=== PATIENT | female | born 1940 | race Caucasian/White ===

== ENCOUNTER 2017-04-16 21:48 | Observation (INO) | payer OTHER ==
[~2017-04-16] VITALS: Ht 165.1 cm; Wt 61.9 kg
[~2017-04-16 21:48] MED LIST: AMITRIPTYLINE H25 MG PO; ASPIRIN EC325 MG PO; ELAVIL25 MG PO; GABAPENTIN600 MG PO; LEVOTHYROXINE50 MCG PO; LEVSIN0.125 MG PO; LO-DOSE ASPIRIN81 M1 PO; MIRALAX17 GM PO; MYRBETRIQ25 MG PO; OMEPRAZOLE20 MG PO; PRILOSEC20 MG PO; TYLENOL EXTRA500 MG PO; VITAMIN D400 UNI4 PO; WELCHOL625 MG PO
[2017-04-16 22:28] LABS: HEMATOCRIT 40.7 % (36.0-46.0); MCH 28.5 PG (29.0-34.0); MCHC 33.2 G/DL (30.0-36.0); MEAN PLAT.VOLUME 8.5 uM^3 (9.5-12.4); PLATELET COUNT 429 K/uL (156-360); RBC DIS.WIDTH-CV 13.7 % (11.8-14.6); RBC DIS.WIDTH-SD 42.9 % (39-53); RED BLOOD COUNT 4.73 M/uL (3.80-5.20); WHITE BLOOD COUNT 8.3 K/uL (4.1-10.2)
[2017-04-16 22:43] LABS: CHLORIDE 96 mEq/L (99-109); POTASSIUM 4.5 mEq/L (3.7-5.4); SODIUM 133 mEq/L (136-147)
[2017-04-16 22:47] LABS: ANION GAP 10 MEQ/L (2-14)
[2017-04-16 22:49] LABS: GFR ESTIMATE (CALCULATED) > 59 mL/min/
[2017-04-16 22:50] LABS: UREA NITROGEN (BUN) 15 mg/dL (9-23)
[2017-04-16 23:25] LABS: GLUCOSE 87 mg/dL (70-99)
[2017-04-16 23:42] LABS: INTER. NORMALIZED RATIO 2.5; PROTHROMBIN TIME 28.9 SEC (10.2-12.9)
[2017-04-16 23:44] LABS: PTT 47.3 SEC (25-37)
[2017-04-17 02:06] LABS: TROP-I INTERPRETATION NEGATIVE; TROPONIN-I 0.02 ng/mL (0.0-0.30)
[2017-04-17] MEDS ORDERED: VITAMIN D-3 401 EACH PO (03:07)
[2017-04-17] MEDS ORDERED: MYRBETRIQ50 MG PO (03:08)
[2017-04-17] MEDS ORDERED: LYRICA50 MG PO (03:08)
[2017-04-17] MEDS ORDERED: ATORVASTATIN CA10 MG PO (03:09)
[2017-04-17] MEDS ORDERED: COUMADIN2 MG PO (03:09)
[2017-04-17 04:39] VITALS: BP 147/81
[2017-04-17 05:31] LABS: MCH 29.3 PG (29.0-34.0); MCHC 34.1 G/DL (30.0-36.0); MEAN PLAT.VOLUME 8.9 uM^3 (9.5-12.4); PLATELET COUNT 414 K/uL (156-360); RBC DIS.WIDTH-CV 13.8 % (11.8-14.6); RBC DIS.WIDTH-SD 43.5 % (39-53); WHITE BLOOD COUNT 7.7 K/uL (4.1-10.2)
[2017-04-17 05:36] LABS: TROP-I INTERPRETATION NEGATIVE; TROPONIN-I < 0.01 ng/mL (0.0-0.30)
[2017-04-17 06:14] LABS: ANION GAP 9 MEQ/L (2-14); CHLORIDE 98 MEQ/L (99-109); GFR ESTIMATE (CALCULATED) > 59 mL/min/; GLUCOSE 84 mg/dL (70-99); POTASSIUM 3.7 MEQ/L (3.7-5.4); SAMPLE HEMOLYSIS CHECK 0; SAMPLE ICTERIC CHECK 0; SAMPLE LIPEMIA CHECK 0; SODIUM 135 MEQ/L (136-147); UREA NITROGEN (BUN) 11 mg/dL (9-23)
[2017-04-17 06:28] VITALS: BP 174/81
[2017-04-17 07:00] VITALS: BP 178/85
[2017-04-17] MEDS ORDERED: NITROSTAT0.4 MG SL (09:59)
[2017-04-17] MEDS ORDERED: ASPIRIN325 MG PO (10:27)
[2017-04-17] MEDS ORDERED: VITAMIN B-650 M1 PO (10:27)
[2017-04-17] MEDS ORDERED: MAG-OXIDE400 MG PO (10:28)
[2017-04-17] MEDS ORDERED: VITAMIN B12 100MCG PO (10:28)
[2017-04-17 10:34] LABS: TROP-I INTERPRETATION NEGATIVE; TROPONIN-I < 0.01 ng/mL (0.0-0.30)
[2017-04-17 11:49] VITALS: BP 156/76
[2017-04-17] MEDS ORDERED: VALSARTAN160 MG PO (12:40)
[2017-04-17 14:20] VITALS: BP 141/67
== END 2017-04-17 14:38 | disposition home or self-care (01) ==
LOC: EME 21:48 → EDOF 04-17 02:28 → 5WEST 04-17 03:37
PROVIDERS: Emergency Medicine; Nurse Practitioner Adult Health
DX: R07.9 Chest pain, unspecified (principal); I10 Essential (primary) hypertension; R06.02 Shortness of breath; E78.5 Hyperlipidemia, unspecified; G43.909 Migraine, unspecified, not intractable, without status migrainosus; I25.2 Old myocardial infarction; K21.9 Gastro-esophageal reflux disease without esophagitis; Z86.73 Personal history of transient ischemic attack (TIA), and cerebral infarction without residual deficits; Z79.82 Long term (current) use of aspirin; Z79.01 Long term (current) use of anticoagulants; Z87.891 Personal history of nicotine dependence; I25.10 Atherosclerotic heart disease of native coronary artery without angina pectoris; Z95.5 Presence of coronary angioplasty implant and graft; E03.9 Hypothyroidism, unspecified; G62.9 Polyneuropathy, unspecified; G89.29 Other chronic pain; M54.5 Low back pain
CPT/HCPCS: 71020; 71275; 74174; 80048; 84484; 85027; 85610; 85730; 93005; 99281; 99285; G0378; J7030

== ENCOUNTER 2017-08-01 12:26 | Inpatient (IN) | payer OTHER ==
[~2017-08-01] VITALS: Ht 162.6 cm; Wt 57.3 kg
[2017-08-01] VITALS (11 sets, daily range): BP systolic 105–125; BP diastolic 55–75
[~2017-08-01 12:26] MED LIST changes: +ASPIRIN325 MG PO; +ATORVASTATIN CA10 MG PO; +COUMADIN2 MG PO; +CYANOCOBALAM1000 MCG PO; +LYRICA50 MG PO; +MAGNESIUM250 M1 PO; +MYRBETRIQ50 MG PO; +NITROSTAT0.4 MG SL; +VALSARTAN160 MG PO; +VITAMIN B-650 M1 PO; +VITAMIN D35000 UNIT PO
[2017-08-01 13:27] LABS: HEMATOCRIT 21.6 % (36.0-46.0); MCHC 32.4 G/DL (30.0-36.0); MCV 89.6 FL (83-99); PLATELET COUNT 368 K/uL (156-360); RBC DIS.WIDTH-CV 14.6 % (11.8-14.6); RBC DIS.WIDTH-SD 47.1 % (39-53); RED BLOOD COUNT 2.41 M/uL (3.80-5.20); WHITE BLOOD COUNT 12.4 K/uL (4.1-10.2)
[2017-08-01 13:47] LABS: CHLORIDE 102 mEq/L (99-109); POTASSIUM 3.8 mEq/L (3.7-5.4); SODIUM 134 mEq/L (136-147)
[2017-08-01 13:49] LABS: GLUCOSE 109 mg/dL (70-99)
[2017-08-01 13:51] LABS: ANION GAP 9 MEQ/L (2-14)
[2017-08-01 13:53] LABS: GFR ESTIMATE (CALCULATED) > 59 mL/min/
[2017-08-01 13:54] LABS: UREA NITROGEN (BUN) 34 mg/dL (9-23)
[2017-08-01 15:12] LABS: INTER. NORMALIZED RATIO 3.9; PROTHROMBIN TIME 44.5 SEC (10.2-12.9)
[2017-08-01] MEDS ORDERED: JANTOVEN2 MG PO (15:46)
[2017-08-01] MEDS ORDERED: VALSARTAN160 MG PO (15:48)
[2017-08-01] MEDS ORDERED: MIRALAX17 GM PO (15:50)
[2017-08-01] MEDS ORDERED: CO Q-10400 MG PO (15:50)
[2017-08-01] MEDS ORDERED: SERTRALINE HCL50 MG PO (15:54)
[2017-08-01] MEDS ORDERED: CALCIUM PO (15:58)
[2017-08-02] VITALS (13 sets, daily range): BP systolic 100–129; BP diastolic 51–68
[2017-08-02 10:52] LABS: HEMATOCRIT 28.1 % (36.0-46.0); MCH 30.3 PG (29.0-34.0); MCHC 34.2 G/DL (30.0-36.0); MCV 88.6 FL (83-99); MEAN PLAT.VOLUME 8.9 uM^3 (9.5-12.4); PLATELET COUNT 268 K/uL (156-360); RBC DIS.WIDTH-CV 15.3 % (11.8-14.6); RBC DIS.WIDTH-SD 49.2 % (39-53); WHITE BLOOD COUNT 7.5 K/uL (4.1-10.2)
[2017-08-02 10:55] LABS: RED BLOOD COUNT 3.17 M/uL (3.80-5.20)
[2017-08-02 11:24] LABS: INTER. NORMALIZED RATIO 1.5; PROTHROMBIN TIME 17.7 SEC (10.2-12.9)
[2017-08-02 20:13] LABS: HEMATOCRIT 28.7 % (36.0-46.0); MCV 88.9 FL (83-99)
[2017-08-02 23:51] LABS: METH RESISTANT S AUREUS PCR NEGATIVE (NEGATIVE)
[2017-08-02 23:57] LABS: PROBE CHECK PASS; SPECIMEN PROCESSING CONTROL PASS
[2017-08-03 03:29] VITALS: BP 108/65
[2017-08-03 07:18] VITALS: BP 101/65
[2017-08-03 09:33] LABS: HEMATOCRIT 33.2 % (36.0-46.0); MCV 89.2 FL (83-99)
[2017-08-03 16:55] VITALS: BP 110/52
[2017-08-03 20:00] LABS: HEMATOCRIT 29.6 % (36.0-46.0); MCV 89.4 FL (83-99)
[2017-08-03 21:00] VITALS: BP 115/58
[2017-08-04 00:47] VITALS: BP 110/78
[2017-08-04 03:03] VITALS: BP 112/65
[2017-08-04 08:47] LABS: HEMATOCRIT 30.4 % (36.0-46.0); MCV 89.4 FL (83-99)
[2017-08-04 08:50] VITALS: BP 140/74
[2017-08-04] MEDS ORDERED: PANTOPRAZOLE SO40 MG PO (15:18)
[2017-08-04 15:36] VITALS: BP 136/70
== END 2017-08-04 20:31 | disposition home or self-care (01) | DRG 378 ==
LOC: EME 12:26 → EDOF 14:59 → 4EAST 14:59 → ENRESERV 15:00 → 4EAST 16:56
PROVIDERS: Internal Medicine
PROC: 30233N1 Transfusion of Nonautologous Red Blood Cells into Peripheral Vein, Percutaneous Approach (ICD-10-PCS; principal; 2017-08-01)
PROC: 0DJ08ZZ Inspection of Upper Intestinal Tract, Via Natural or Artificial Opening Endoscopic (ICD-10-PCS; 2017-08-02)
PROC: 30233K1 Transfusion of Nonautologous Frozen Plasma into Peripheral Vein, Percutaneous Approach (ICD-10-PCS; 2017-08-02)
PROC: 0DBN8ZX Excision of Sigmoid Colon, Via Natural or Artificial Opening Endoscopic, Diagnostic (ICD-10-PCS; 2017-08-03)
DX: K92.1 Melena (principal); D68.32 Hemorrhagic disorder due to extrinsic circulating anticoagulants; K21.9 Gastro-esophageal reflux disease without esophagitis; D50.0 Iron deficiency anemia secondary to blood loss (chronic); K59.00 Constipation, unspecified; K64.8 Other hemorrhoids; K57.30 Diverticulosis of large intestine without perforation or abscess without bleeding; G62.9 Polyneuropathy, unspecified; I25.10 Atherosclerotic heart disease of native coronary artery without angina pectoris; E78.5 Hyperlipidemia, unspecified; E03.9 Hypothyroidism, unspecified; K44.9 Diaphragmatic hernia without obstruction or gangrene; K22.2 Esophageal obstruction; I25.2 Old myocardial infarction; Z95.5 Presence of coronary angioplasty implant and graft; Z79.82 Long term (current) use of aspirin; Z79.01 Long term (current) use of anticoagulants; Z86.73 Personal history of transient ischemic attack (TIA), and cerebral infarction without residual deficits; Z87.891 Personal history of nicotine dependence; D12.5 Benign neoplasm of sigmoid colon; D12.3 Benign neoplasm of transverse colon
CPT/HCPCS: 36415; 74245; 80048; 85014; 85018; 85027; 85610; 86850; 86900; 86901; 86920; 87641; 88305; 93005; 99281; 99285; C9113; J1940; J2250; J2405; J7030; J7050; P9016; P9017

== ENCOUNTER 2017-09-05 12:36 | Emergency (ER) | payer OTHER ==
[~2017-09-05] VITALS: Ht 170.2 cm; Wt 62.0 kg
[~2017-09-05 12:36] MED LIST changes: +CALCIUM PO; +CO Q-10400 MG PO; +JANTOVEN2 MG PO; +PANTOPRAZOLE SO40 MG PO; +SERTRALINE HCL50 MG PO
[2017-09-05 13:03] LABS: BASOPHIL COUNT 0.1 K/uL (0-0.1); EOSINOPHIL (%) 4.4 % (0-5); EOSINOPHIL COUNT 0.4 K/uL (0-0.3); HEMATOCRIT 37.9 % (36.0-46.0); IMMATURE GRANULOCYTE (%) 0.2 % (0.0-0.7); LYMPHOCYTE COUNT 1.1 K/uL (1.0-2.8); MCH 29.3 PG (29.0-34.0); MCHC 32.5 G/DL (30.0-36.0); MCV 90.2 FL (83-99); MEAN PLAT.VOLUME 8.3 uM^3 (9.5-12.4); MONOCYTE (%) 8.9 % (3-12); MONOCYTE COUNT 0.7 K/uL (0-0.8); NEUTROPHIL (%) 72.3 % (45-76); PLATELET COUNT 388 K/uL (156-360); RBC DIS.WIDTH-CV 13.8 % (11.8-14.6); RBC DIS.WIDTH-SD 45.6 % (39-53); WHITE BLOOD COUNT 8.3 K/uL (4.1-10.2)
[2017-09-05 13:10] LABS: PROTHROMBIN TIME 10.9 SEC (10.2-12.9)
[2017-09-05 13:13] LABS: PTT 31.4 SEC (25-37)
[2017-09-05 13:19] LABS: CHLORIDE 97 mEq/L (99-109); POTASSIUM 4.6 mEq/L (3.7-5.4); SODIUM 135 mEq/L (136-147)
[2017-09-05 13:21] LABS: GLUCOSE 97 mg/dL (70-99)
[2017-09-05 13:22] LABS: ANION GAP 10 MEQ/L (2-14)
[2017-09-05 13:25] LABS: GFR ESTIMATE (CALCULATED) > 59 mL/min/
[2017-09-05 13:26] LABS: UREA NITROGEN (BUN) 16 mg/dL (9-23)
[2017-09-05 13:28] LABS: TROP-I INTERPRETATION NEGATIVE; TROPONIN-I < 0.01 ng/mL (0.0-0.30)
[2017-09-05 15:40] LABS: TROP-I INTERPRETATION NEGATIVE; TROPONIN-I < 0.01 ng/mL (0.0-0.30)
[2017-09-05] MEDS ORDERED: VENTOLIN HFA18 GM IH (16:36)
[2017-09-05] MEDS ORDERED: DOXYCYCLINE MO100 MG PO (16:36)
[2017-09-05] MEDS ORDERED: PREDNISONE20 MG PO (16:36)
[2017-09-05 16:55] VITALS: BP 174/81
== END 2017-09-05 16:56 | disposition home or self-care (01) ==
LOC: EME 12:36
PROVIDERS: Emergency Medicine
DX: R06.03 Acute respiratory distress (principal); J44.0 Chronic obstructive pulmonary disease with (acute) lower respiratory infection; J20.9 Acute bronchitis, unspecified; J44.1 Chronic obstructive pulmonary disease with (acute) exacerbation; R51 Headache; E78.5 Hyperlipidemia, unspecified; K21.9 Gastro-esophageal reflux disease without esophagitis; F41.9 Anxiety disorder, unspecified; F32.9 Major depressive disorder, single episode, unspecified; I25.2 Old myocardial infarction; Z87.891 Personal history of nicotine dependence; Z86.73 Personal history of transient ischemic attack (TIA), and cerebral infarction without residual deficits; Z79.82 Long term (current) use of aspirin; Z88.5 Allergy status to narcotic agent; Z88.0 Allergy status to penicillin; Z88.1 Allergy status to other antibiotic agents; Z88.8 Allergy status to other drugs, medicaments and biological substances
CPT/HCPCS: 70450; 71010; 71275; 80048; 83880; 84484; 85025; 85379; 85610; 85730; 93005; 94640; J2930; J7030